=== PATIENT | female | born 1945 ===

== ENCOUNTER 2020-07-07 11:00 | Inpatient (IN) | payer OTHER ==
[~2020-07-07] VITALS: Ht 162.6 cm; Wt 73.5 kg
[2020-07-07] MEDS ORDERED: VITAMIN C PO (15:00)
[2020-07-07] MEDS ORDERED: VERELAN180 MG PO (15:00)
[2020-07-07] MEDS ORDERED: VITAMIN D310 MCG/1 M PO (15:01)
[2020-07-07] MEDS ORDERED: VITAMIN B12 PO (15:01)
[2020-07-14] MEDS ORDERED: NORVASC2.5 MG (10:40)
[2020-07-14] MEDS ORDERED: VITAMIN C1000 MG PO (10:41)
[2020-07-14] MEDS ORDERED: VITAMIN B-121000 MC4 PO (10:42)
[2020-07-17] MEDS ORDERED: LEVSIN/SL0.125 MG SL (13:40)
[2020-07-17] MEDS ORDERED: INTESTINEX680 M1 PO (13:41)
== END 2020-07-17 14:43 | disposition home or self-care (01) | DRG 331 ==
LOC: O/R 07-14 08:58 → SURH 07-14 08:58
PROVIDERS: ADMIT Surgery; ATTEND Surgery
PROC: 0DBN4ZZ Excision of Sigmoid Colon, Percutaneous Endoscopic Approach (ICD-10-PCS; 2020-07-14)
PROC: 0DJD8ZZ Inspection of Lower Intestinal Tract, Via Natural or Artificial Opening Endoscopic (ICD-10-PCS; 2020-07-14)
PROC: 0DTP4ZZ Resection of Rectum, Percutaneous Endoscopic Approach (ICD-10-PCS; principal; 2020-07-14 11:15)
DX: K57.30 Diverticulosis of large intestine without perforation or abscess without bleeding (principal); M79.7 Fibromyalgia; D64.9 Anemia, unspecified